=== PATIENT | male | born 1930 | race Hispanic/Latino ===

== ENCOUNTER 2017-10-13 00:04 | Emergency (ER) | payer MEDICARE ==
[2017-10-13] MEDS ORDERED: IPRATROPIUM/ALBUTEROL SULFATE 3 ML SOLUTION IH ONE (01:47)
== END 2017-10-13 02:21 | disposition home or self-care (01) ==
LOC: EDH 00:04
DX: J20.9 Acute bronchitis, unspecified (principal); I10 Essential (primary) hypertension; E11.9 Type 2 diabetes mellitus without complications; Z72.0 Tobacco use
CPT/HCPCS: 71045; 87880; 94640

== ENCOUNTER 2018-09-14 00:56 | Emergency (ER) | payer MEDICARE ==
[2018-09-14] MEDS ORDERED: CEFTRIAXONE SODIUM 1 GM ONE (01:29)
[2018-09-14] MEDS ORDERED: DEXAMETHASONE SOD PHOSPHATE 10MG/ML 1ML VIAL ONE (01:29)
[2018-09-14] MEDS ORDERED: SODIUM CHLORIDE 0.9% 50 ML IV ONE (01:29)
[2018-09-14 01:41] LABS: BASOPHILS % (AUTO) 0.6 % (0.0-5.0); CREATININE 1.8 mg/dL (0.5-1.5); EOSINOPHILS % (AUTO) 4.1 % (0.0-8.0); MEAN CORPUSCULAR HEMOGLOBIN 32.2 pg (27.0-33.0); MEAN CORPUSCULAR VOLUME 97.6 fL (79-99); MONOCYTES % (AUTO) 8.8 % (3.0-13.0); NEUTROPHILS % (AUTO) 60.5 % (40.0-77.0); PLATELET COUNT (AUTO) 166 K/uL (130-400); POTASSIUM 3.9 mmol/L (3.5-5.1); RED BLOOD CELL COUNT(AUTO) 3.69 MIL/uL (4.50-6.20); RED CELL DISTRIBUTION WIDTH 13.7 % (11.0-15.5); WHITE BLOOD COUNT (AUTO) 9.2 K/uL (4.8-10.8)
== END 2018-09-14 03:11 | disposition home or self-care (01) ==
LOC: EDH 00:56
DX: J02.9 Acute pharyngitis, unspecified (principal); I10 Essential (primary) hypertension; E11.9 Type 2 diabetes mellitus without complications; I25.10 Atherosclerotic heart disease of native coronary artery without angina pectoris; Z72.0 Tobacco use; Z98.890 Other specified postprocedural states
CPT/HCPCS: 36415; 70490; 80048; 85025; 87880; 96374; 96375; 99284; J0696; J1100